=== PATIENT | male | born 2000 | race Caucasian/White ===

== ENCOUNTER 2021-12-06 12:06 | Emergency (ER) | payer OTHER, SELFPAY ==
--- NOTE | 2021-12-06 12:48 | XR_ITS ---
FINAL REPORT CLINICAL HISTORY: PUNCHED PUNCHING BAG FINDINGS: RIGHT WRIST Three views demonstrate no acute fracture or dislocation. The visualized joint spaces are normally aligned. The soft tissues are unremarkable. IMPRESSION: No acute bony abnormality. Reviewed, Interpreted and Dictated by Epifanio Smith III, MD Transcribed by Minda Jackson Authenticated by Epifanio Smith III, MD on 12/06/2021 01:56:24 PM [facility]
--- NOTE | 2021-12-06 12:48 | XR_ITS ---
FINAL REPORT CLINICAL HISTORY: PUNCHED PUNCHING BAG FINDINGS: RIGHT HAND 3 views of the right hand were obtained. There is no acute fracture or dislocation. Visualized joint spaces are normally aligned. Soft tissues are unremarkable. IMPRESSION: No acute bony abnormality. Reviewed, Interpreted and Dictated by Epifanio Smith III, MD Transcribed by Minda Jackson Authenticated by Epifanio Smith III, MD on 12/06/2021 01:56:23 PM [facility]
[2021-12-06 12:49] VITALS: BP 122/71; PULSE 78; RESP 16; TEMP 36.8; O2SAT 98
--- NOTE | 2021-12-06 12:54 | HMH.EDUTC ---
[facility] [place] Clinical Impression: Wrist sprain Qualifiers: Encounter type: initial encounter Laterality: right Qualified Code(s): S63.501A - Unspecified sprain of right wrist, initial encounter Disposition: Home, Self-Care Condition on Discharge: Good Instructions: How To Perform RICE (Rest, Ice, Compress, Elevate) Additional Instructions: *RICE, Rest the extremity, Ice 15-20 minutes 3-4 times daily, Compress- wear the demetris wrap as discussed as much as possible to help reduce swelling and pain, Elevate the extremity when at rest *Demetris wrap/velcro wrist splint is for support and help control swelling, use it except in the shower. Be sure that is not to tight but not to loose either *Elevate when resting *Ibuprofen as directed on package every 6-8 hours as needed for pain an inflammation. If need something more can take Tylenol in between doses of Ibuprofen to help Immediately follow up with your family doctor for new or worsening of symptoms, or no noticeable improvement over the next 3-5 days You may call back later this evening for the offiical Radiology reading of your xray Referrals: Epifanio Munoz [Primary Care Provider] - As needed Forms: Work/School Release Time of Disposition: 13:51 Medical Decision Making - Rolo Inquiry Pt receiving controlled substance: No Rolo was queried for this patient: No Vital Signs: 12/06/21 12:49 Temperature 98.2 F Temperature Source Oral Pulse Rate [Left Radial] 78 Respiratory Rate 16 Blood Pressure [Left Arm] 122/71 Blood Pressure Mean [Left Arm] 88 Blood Pressure Source [Left Arm] Automatic Cuff Blood Pressure Position [Left Arm] Sitting 02 Sat by Pulse Oximetry 98 Oxygen Delivery Method Room Air Orders (Tests/Meds): ORDERS Category Date Time Status XR hand RT min 3V Stat Exams 12/06/21 12:48 Taken XR wrist RT min 3V Stat Exams 12/06/21 12:48 Taken - Radiology Data #1 Image(s): Wrist Image Reviewed: Yes I reviewed the patient's radiology image Preliminary Findings: No Fracture Seen #2 Image(s): Hand Image Reviewed: Yes I reviewed the patient's radiology image Preliminary Findings: No Fracture Seen [facility] [place] - General Stated complaint: right wrist pain Time Seen by Provider: 12/06/21 12:54 Mode of Arrival: Ambulatory Source of Information: Patient Limitations: No Limitations Description of Symptoms (Recalled from Triage Doc. by RN): Pt c/o R wrist pain. Reports he was hitting a punching bag lastnight when he began having pain HEENT Symptoms (Recalled from RN notes): No Resp Symptoms (Recalled from RN notes): No Skin Symptoms (Recalled from RN notes): No MS Symptoms (Recalled from RN notes): Yes (c/o R wrist pain) Functional Status (Recalled from RN notes): n/a - History of Present Illness Provider Complaint: Patient states that he was punching a punching bag last night and started having pain in his right wrist States that he has pain when he moves his wrist certain ways to tries to chute tender something States that today when he was still complaining she brought him in - Related Data Home Medications Medication Instructions Recorded Confirmed dexmethylphenidate 15 mg PO 30 Days #30 cap 12/01/18 12/01/18 capsule,extended release [id number] fluoxetine 20 mg/5 mL (4 mg/mL) PO 30 Days #150 ml 12/01/18 12/01/18 oral solution Previous Rx's Medication Instructions Recorded amoxicillin 250 mg chewable tablet 750 mg PO BID 10 Days #60 tab 12/01/18 Amoxicillin [Amoxicillin 400MG/5ML 500 mg PO BID 10 Days #128 11/19/19 Oral Susp.] susp.recon Allergies Allergy/AdvReac Type Severity Reaction Status Date / Time No Known Allergies Allergy Verified 12/01/18 10:48 - Worker's Comp Is this a Worker's Comp case?: No H History - Hepatitis A Screen Drug use history?: No High risk sexual behaviors?: No History of sexually transmitted infection?: No Currently employed?: No Childcare worker?: No Do you have ind
[2021-12-06 14:02] VITALS: BP 120/70; PULSE 78; RESP 16; TEMP 36.8; O2SAT 98
== END 2021-12-06 14:03 | disposition home or self-care (01) ==
PROVIDERS: Emergency Provider Nurse Practitioner; PCP Pediatrics
DX: S63.501A Unspecified sprain of right wrist, initial encounter (principal); W22.8XXA Striking against or struck by other objects, initial encounter; Y92.89 Other specified places as the place of occurrence of the external cause
CPT/HCPCS: 29125; 73110; 73130; 99212; G0463